=== PATIENT | male | born 1945 | race Caucasian/White ===

== ENCOUNTER → 2018-02-01 12:24 | Outpatient (CLI) | payer MEDICARE, OTHER, SELFPAY ==
--- NOTE | 2018-02-07 11:56 | PM.PFT.1 ---
Pulmonary Function Test Referral & Results Date Patient Seen: 02/01/18 Requesting provider: Kathi Krueger Indication: COPD Results: The spirometry demonstrates an FVC of 1.92 L which is 47% of predicted. The FEV1 was measured at 0.47 L which is 16% of predicted. The FEV1/FVC ratio was 25 which is 33% of predicted. Following the administration of bronchodilator there was a 20% improvement in FEV1 and a 55% improvement in FEF 25-75%. Lung volumes show an SVC of 1.79 L which is 42% of predicted. The diffusing capacity was measured at 7.66 which is 25% of predicted. No hemoglobin value was provided, so no correction for potential anemia could be made, if appropriate. The maximum voluntary ventilation was reduced Interpretation: This study demonstrates severe obstructive lung disease with an FEV1 of only 470 mL. There is evidence of significant benefit following bronchodilator based on improvement in FEV1 and FEF 25-75% There is moderately severe restrictive lung disease present as well There is also severe reduction in diffusing capacity suggesting significant disease at the capillary alveolar level to the point where patient's likely hypoxic on room air at times Clinical correlation suggested
== END ==
PROVIDERS: PCP Internal Medicine; Visit Provider Internal Medicine Critical Care Medicine
DX: J44.9 Chronic obstructive pulmonary disease, unspecified (principal)
CPT/HCPCS: 94060; 94726; 94729